=== PATIENT | female | born 1980 | race Caucasian/White ===

== ENCOUNTER 2023-12-22 21:18 | Inpatient (IN) | payer OTHER ==
[2023-12-22 22:56] VITALS: RESP 18; BMI 37.4
[2023-12-23 00:19] LABS: POTASSIUM 4.3 mmol/L (3.5-5.1)
[2023-12-23] MEDS: MISOPROSTOL 25 MCG TABLET (COMPOUNDED BY PHARMACY) PV SCH (00:20)
[2023-12-23 00:22] LABS: ALBUMIN 2.4 g/dl (3.4-5.0); CALCIUM 8.5 mg/dL (8.5-10.1)
[2023-12-23 00:23] LABS: BASO % 0.3 % (0-2.0); EOS % 0.8 % (0-4.5); HEMATOCRIT 30.4 % (32.4-45.2); HEMOGLOBIN 9.3 GM/dL (10.7-15.3); INR 0.98 (0.83-1.09); LYMPH % 10.3 % (8-40); MCH 20.8 pg (25.7-33.7); MCHC 30.5 g/dl (32.0-36.0); MEAN CELL VOLUME 68.1 fl (80-96); MEAN PLT VOLUME 9.3 fl (7.5-11.1); MONO % 7.3 % (3.8-10.2); NEUT % 81.3 % (42.8-82.8); PLATELET COUNT 196 10^3/uL (134-434); PROTHROMBIN TIME (PATIENT) 11.4 SEC (9.7-13.0); RBC 4.47 M/mm3 (3.60-5.2); RDW 20.8 % (11.6-15.6); WHITE BLOOD COUNT 11.5 K/mm3 (4.0-10.0)
[2023-12-23 00:26] LABS: CREATININE 0.6 mg/dL (0.55-1.3)
[2023-12-23 00:27] LABS: BILIRUBIN,TOTAL 0.5 mg/dL (0.2-1)
[2023-12-23 00:28] LABS: TOT PROT 6.7 g/dl (6.4-8.2)
[2023-12-23] MEDS: SODIUM CHLORIDE 500 ML IV STA (00:30)
[2023-12-23] MEDS ORDERED: WITCH HAZEL 50% (TUCKS) 40 PAD/JAR PAD TP PRN (06:03)
[2023-12-23] MEDS ORDERED: BENZOCAINE 28 GM HEMORRHOIDAL OINTMENT TP PRN (06:03)
[2023-12-23 06:37] LABS: CORD BASE EXCESS -2.6 mmol/L (0-2); CORD HCO3 23.1 mmHg (20-29); CORD PCO2 43.2 mmHg (30-78); CORD pH 7.346 (7.14-7.44)
[2023-12-23 06:38] LABS: CORD BASE EXCESS -6.1 mmol/L (0-2); CORD HCO3 19.7 mmHg (20-29); CORD PCO2 40.3 mmHg (30-78); CORD pH 7.308 (7.14-7.44)
[2023-12-23 07:15] LABS: ANISOCYTOSIS 3+; MACROCYTOSIS 0; ROULEAU 1+
[2023-12-23] MEDS ORDERED: IBUPROFEN 600 MG TABLET (FP) PO ONE (07:15)
[2023-12-23] MEDS: IBUPROFEN 600 MG TABLET (FP) PO PRN (07:20)
[2023-12-23] MEDS ORDERED: OXYTOCIN 20 UNITS in 0.9% NS 20 UNIT/1,000 ML INFUS.BAG IV ONE (08:11)
[2023-12-23] MEDS: OXYTOCIN 20 UNITS in 0.9% NS 20 UNIT/1,000 ML INFUS.BAG IV SCH (08:12)
[2023-12-23] MEDS: FERROUS SO4 325 MG TABLET (FP) PO SCH (09:17)
[2023-12-23] MEDS: ACETAMINOPHEN 325 MG TABLET (FP) PO PRN (09:34)
[2023-12-23] MEDS: DOCUSATE SODIUM 100 MG CAPSULE (FP) PO SCH (14:07)
[2023-12-23] MEDS: DEXTROSE 5%-LACTATED RINGERS 1,000 ML IV SCH (19:21)
[2023-12-24 07:47] LABS: BASO % 0.5 % (0-2.0); EOS % 1.4 % (0-4.5); HEMATOCRIT 25.8 % (32.4-45.2); HEMOGLOBIN 8.1 GM/dL (10.7-15.3); LYMPH % 15.5 % (8-40); MCH 21.2 pg (25.7-33.7); MCHC 31.4 g/dl (32.0-36.0); MEAN CELL VOLUME 67.7 fl (80-96); MEAN PLT VOLUME 8.3 fl (7.5-11.1); MONO % 9.5 % (3.8-10.2); NEUT % 73.1 % (42.8-82.8); PLATELET COUNT 161 10^3/uL (134-434); RBC 3.81 M/mm3 (3.60-5.2); RDW 20.9 % (11.6-15.6); WHITE BLOOD COUNT 11.2 K/mm3 (4.0-10.0)
[2023-12-25 08:45] VITALS: BP 139/82; PULSE 85; TEMP 98.5
== END 2023-12-25 18:00 | disposition home or self-care (01) | DRG 560 ==
LOC: JLDR 21:18 → J3W 12-23 08:28
PROVIDERS: ADMIT Obstetrics & Gynecology Maternal & Fetal Medicine; ATTEND Obstetrics & Gynecology Maternal & Fetal Medicine
PROC: 10E0XZZ Delivery of Products of Conception, External Approach (ICD-10-PCS; principal; 2023-12-23)
PROC: 3E0P7VZ Introduction of Hormone into Female Reproductive, Via Natural or Artificial Opening (ICD-10-PCS; 2023-12-23)
DX: O90.81 Anemia of the puerperium (principal); D64.9 Anemia, unspecified; Z37.0 Single live birth; Z3A.39 39 weeks gestation of pregnancy; Z87.59 Personal history of other complications of pregnancy, childbirth and the puerperium
CPT/HCPCS: 36415; 36600; 80053; 82803; 85025; 85461; 85610; 85730; 86780; 86850; 86870; 86880; 86900; 86901; 86902; 96372; J2790